=== PATIENT | female | born 1980 ===

== ENCOUNTER → 2017-11-20 | Outpatient (CLI) | payer OTHER ==
[~2017-11-20] MED LIST: CYCL10 PO; HYDR1TAB94 PO; IBUP800 PO; KETO10 PO; Prednisone20 MG PO; Robaxin500 MG PO
[2017-11-20 12:49] LABS: Influenza A Negative (NEGATIVE); Influenza B Positive (NEGATIVE)
== END ==
LOC: LAB 11:40
PROVIDERS: Family Medicine
DX: J02.9 Acute pharyngitis, unspecified (principal)
CPT/HCPCS: 87804

== ENCOUNTER 2019-10-15 10:32 | Emergency (ER) | payer OTHER ==
[~2019-10-15] VITALS: Ht 167.6 cm; Wt 117.9 kg
[2019-10-15] MEDS ORDERED: ACYCLOVIR400 MG PO (13:55)
[2019-10-15] MEDS ORDERED: LATA.005SO (13:55)
[2019-10-15 15:01] LABS: Source, Urine Catheter
[2019-10-15 15:16] LABS: Bilirubin, Urine Neg (Neg); Blood, Urine Neg (Neg); Glucose Qualitative, Urine Neg (Neg); Ketones, Urine Neg (Neg); Leukocyte Esterase, Urine Neg (Neg); Nitrite, Urine Neg (Neg); Protein, Urine Neg (Neg); Urobilinogen, Urine NORM (Normal)
[2019-10-15 15:27] LABS: Appearance, Urine Clear (Clear); Color, Urine Yellow (P-Yellow)
[2019-10-15] MEDS ORDERED: Prednisone20 MG PO (15:27)
[2019-10-15] MEDS ORDERED: Ultram50 MG PO (15:27)
[2019-10-15] MEDS ORDERED: Voltaren100 GM TOP (15:27)
== END 2019-10-15 15:42 | disposition home or self-care (01) ==
LOC: ER 10:32
PROVIDERS: Physician Assistant
DX: M51.37 Other intervertebral disc degeneration, lumbosacral region (principal); Z79.899 Other long term (current) drug therapy; E78.00 Pure hypercholesterolemia, unspecified
CPT/HCPCS: 72100; 81003; 81025; 96374; 99283-25; J1100; J1885

== ENCOUNTER 2020-03-03 12:04 | Day surgery (SDC) | payer OTHER ==
[~2020-03-03] VITALS: Ht 167.6 cm; Wt 121.9 kg
[~2020-03-03 12:04] MED LIST changes: +ACYCLOVIR400 MG PO; +Flovent 110 MCG12 GM; +LATA.005SO; +Ultram50 MG PO; +Voltaren100 GM TOP
[2020-03-03] MEDS ORDERED: Vitamin D2000 UNIT (12:35)
[2020-03-03] MEDS ORDERED: OMEP20ER (12:35)
== END 2020-03-03 13:30 | disposition home or self-care (01) ==
LOC: ORSCSDS 12:04
PROVIDERS: Student in an Organized Health Care Education/Training Program
PROC: 0DB58ZX Excision of Esophagus, Via Natural or Artificial Opening Endoscopic, Diagnostic (ICD-10-PCS; principal; 2020-03-03 13:30)
PROC: 0DB68ZX Excision of Stomach, Via Natural or Artificial Opening Endoscopic, Diagnostic (ICD-10-PCS; principal; 2020-03-03 13:30)
DX: K21.9 Gastro-esophageal reflux disease without esophagitis (principal); K20.9 Esophagitis, unspecified; J45.909 Unspecified asthma, uncomplicated; F41.9 Anxiety disorder, unspecified; E66.01 Morbid (severe) obesity due to excess calories; Z68.41 Body mass index [BMI] 40.0-44.9, adult; Z79.899 Other long term (current) drug therapy
CPT/HCPCS: 88305; 88342; J2250; J2704; J7120

== ENCOUNTER → 2022-01-05 | Outpatient (CLI) | payer OTHER ==
[~2022-01-05] MED LIST changes: +OMEP20ER; +Vitamin D2000 UNIT
== END ==
LOC: LAB 14:07 → LAB SHORT 14:07
DX: D48.5 Neoplasm of uncertain behavior of skin (principal)
CPT/HCPCS: 88342

== ENCOUNTER 2024-12-09 17:51 | Emergency (ER) | payer OTHER ==
[~2024-12-09] VITALS: Ht 167.6 cm; Wt 117.9 kg
[2024-12-09 18:55] LABS: BASOPHILS ABSOLUTE AUTO 0.08 K/mm3 (0.00-0.23); BASOPHILS PERCENT AUTO 1 % (0-2); EOSINOPHILS ABSOLUTE AUTO 0.13 K/mm3 (0.00-0.68); EOSINOPHILS PERCENT AUTO 1 % (0-6); Hematocrit 31.3 % (33.0-51.0); Hemoglobin 10.5 g/dL (11.5-16.0); IMMATURE GRAN ABSOLUTE AUTO 0.07 K/mm3 (0.00-0.10); IMMATURE GRAN PERCENT AUTO 1 % (0-1); LYMPHOCYTES PERCENT AUTO 21 % (21-46); MONOCYTES ABSOLUTE AUTO 0.85 K/mm3 (0.16-1.47); MONOCYTES PERCENT AUTO 8 % (4-13); Mean Corpuscular HGB 31.6 pg (26.0-34.0); Mean Corpuscular HGB Conc 33.5 g/dL (31.5-36.5); Mean Corpuscular Volume 94 fL (80-100); Mean Platelet Volume 11.4 fL (9.1-12.4); NEUTROPHILS ABSOLUTE AUTO 7.48 K/mm3 (1.96-9.15); NEUTROPHILS PERCENT AUTO 69 % (41-73); Platelet Count 214 K/mm3 (150-400); RDW Coefficient Variation 13.6 % (11.7-14.2); RDW Standard Deviation 46.7 fL (35.1-46.3); Red Blood Cell Count 3.32 M/mm3 (3.80-5.20); White Blood Cell Count 10.91 K/mm3 (4.00-11.30)
[2024-12-09 19:18] LABS: Albumin, Blood 3.4 g/dL (3.4-5.0); Bilirubin, Total 0.2 mg/dL (0.1-1.0); Bun/Creatinine Ratio 20.2 (12.0-20.0); Calcium, Blood 8.8 mg/dL (8.5-10.1); Creatinine, Blood 0.64 mg/dL (0.40-1.00); Globulin, Blood 3.3 g/dL (2.2-4.0); Potassium, Blood 3.6 mmol/L (3.5-5.5); Total Protein, Blood 6.7 g/dL (6.4-8.2)
[2024-12-09 22:28] LABS: Source, Urine Clean Catch
[2024-12-09 22:33] LABS: Appearance, Urine Clear (Clear); Bilirubin, Urine Neg (Neg); Blood, Urine 5+ (Neg); Color, Urine Yellow (P-Yellow); Glucose Qualitative, Urine Neg (Neg); Ketones, Urine Neg (Neg); Leukocyte Esterase, Urine Neg (Neg); Nitrite, Urine Neg (Neg); Protein, Urine 2+ (Neg); Specific Gravity, Urine 1.025 (1.003-1.022); Urobilinogen, Urine NORM (Normal)
[2024-12-09 22:40] LABS: Bacteria Rare /hpf; Red Blood Cells, Urine TNTC /hpf (0-2); Squamous Epithelial Cells Rare /hpf (Few); White Blood Cells, Urine Not Seen /hpf (0-5)
[2024-12-10 00:59] LABS: Hematocrit 28.6 % (33.0-51.0); Hemoglobin 9.8 g/dL (11.5-16.0)
[2024-12-10] MEDS ORDERED: MedroxyPROGESTERone Acetate 10 MG Tab PO ONE (01:40)
[2024-12-10] MEDS ORDERED: MEDR10 PO (01:42)
[2024-12-10 02:00] VITALS: BP 133/68
[2024-12-11 09:10] LABS: IRON BIND.CAP.(TIBC) 231 ug/dL (250-450); IRON SATURATION 26 % (15-55); IRON, SERUM 61 ug/dL (27-159); UIBC 170 ug/dL (131-425)
== END 2024-12-10 02:25 | disposition home or self-care (01) ==
LOC: ER 17:51
PROVIDERS: Student in an Organized Health Care Education/Training Program
DX: D25.2 Subserosal leiomyoma of uterus (principal); Z79.899 Other long term (current) drug therapy
CPT/HCPCS: 76830; 76856; 80053; 81001; 81025; 83540; 83550; 85014; 85018; 85025; 86850; 86900; 86901; 93005; 93010; 99284-25; A9270

== ENCOUNTER 2024-12-17 16:05 | Emergency (ER) | payer OTHER ==
[~2024-12-17] VITALS: Ht 167.6 cm; Wt 115.7 kg
[~2024-12-17 16:05] MED LIST changes: +MEDR10 PO; -OMEP20ER; +OMEPRAZOLE MAGN20 M1 PO; +Vitamin D1000 UNI1 PO; -Vitamin D2000 UNIT
[2024-12-17 17:13] LABS: International Normalized Ratio 0.96; Prothrombin Time Results 10.3 Sec (9.7-11.5)
[2024-12-17 17:20] LABS: Albumin, Blood 3.2 g/dL (3.4-5.0); Bilirubin, Total 0.2 mg/dL (0.1-1.0); Bun/Creatinine Ratio 16.9 (12.0-20.0); Calcium, Blood 8.4 mg/dL (8.5-10.1); Creatinine, Blood 0.71 mg/dL (0.40-1.00); Globulin, Blood 3.3 g/dL (2.2-4.0); Potassium, Blood 3.5 mmol/L (3.5-5.5); Total Protein, Blood 6.5 g/dL (6.4-8.2)
[2024-12-17] MEDS ORDERED: NS 1,000 ML IV ONE (19:57)
[2024-12-17] MEDS ORDERED: NS 1,000 ML IV SCH (20:25)
[2024-12-17 22:00] VITALS: BP 133/76
[2024-12-17] MEDS ORDERED: Ibuprofen 600 MG Tab PO ONE (22:35)
== END 2024-12-17 23:04 | disposition home or self-care (01) ==
LOC: ER 16:05
PROVIDERS: Student in an Organized Health Care Education/Training Program
DX: D64.9 Anemia, unspecified (principal); N93.9 Abnormal uterine and vaginal bleeding, unspecified; R51.9 Headache, unspecified; R55 Syncope and collapse; E78.00 Pure hypercholesterolemia, unspecified; H40.059 Ocular hypertension, unspecified eye; Z79.899 Other long term (current) drug therapy
CPT/HCPCS: 36430; 80053; 85610; 85730; 86850; 86900; 86901; 86923; 93005; 93010; 99284-25; A9270; J7030; P9016

== ENCOUNTER 2024-12-18 21:39 | Observation (INO) | payer OTHER ==
[~2024-12-18] VITALS: Ht 167.6 cm; Wt 117.0 kg
[2024-12-18 22:13] LABS: BASOPHILS ABSOLUTE AUTO 0.07 K/mm3 (0.00-0.23); BASOPHILS PERCENT AUTO 1 % (0-2); EOSINOPHILS ABSOLUTE AUTO 0.15 K/mm3 (0.00-0.68); EOSINOPHILS PERCENT AUTO 1 % (0-6); Hematocrit 25.5 % (33.0-51.0); Hemoglobin 8.5 g/dL (11.5-16.0); IMMATURE GRAN ABSOLUTE AUTO 0.08 K/mm3 (0.00-0.10); IMMATURE GRAN PERCENT AUTO 1 % (0-1); LYMPHOCYTES ABSOLUTE AUTO 2.29 K/mm3 (0.84-5.20); LYMPHOCYTES PERCENT AUTO 18 % (21-46); MONOCYTES ABSOLUTE AUTO 1.01 K/mm3 (0.16-1.47); MONOCYTES PERCENT AUTO 8 % (4-13); Mean Corpuscular HGB 32.1 pg (26.0-34.0); Mean Corpuscular HGB Conc 33.3 g/dL (31.5-36.5); Mean Corpuscular Volume 96 fL (80-100); Mean Platelet Volume 10.7 fL (9.1-12.4); NEUTROPHILS ABSOLUTE AUTO 8.87 K/mm3 (1.96-9.15); NEUTROPHILS PERCENT AUTO 71 % (41-73); Platelet Count 270 K/mm3 (150-400); RDW Coefficient Variation 17.4 % (11.7-14.2); RDW Standard Deviation 59.3 fL (35.1-46.3); Red Blood Cell Count 2.65 M/mm3 (3.80-5.20); White Blood Cell Count 12.47 K/mm3 (4.00-11.30)
[2024-12-18 22:28] LABS: International Normalized Ratio 0.96; Prothrombin Time Results 10.3 Sec (9.7-11.5)
[2024-12-18 22:44] LABS: Albumin, Blood 3.2 g/dL (3.4-5.0); Bilirubin, Total 0.2 mg/dL (0.1-1.0); Bun/Creatinine Ratio 16.6 (12.0-20.0); Calcium, Blood 8.5 mg/dL (8.5-10.1); Creatinine, Blood 0.66 mg/dL (0.40-1.00); Globulin, Blood 3.2 g/dL (2.2-4.0); Potassium, Blood 3.5 mmol/L (3.5-5.5); Total Protein, Blood 6.4 g/dL (6.4-8.2)
[2024-12-19] VITALS (18 sets, daily range): BP systolic 108–155; BP diastolic 51–90
[2024-12-19] MEDS ORDERED: NS 1,000 ML IV SCH (02:40)
[2024-12-19] MEDS ORDERED: HYDROmorphone HCl/Pf 1MG SYR IV PRN (02:40)
[2024-12-19] MEDS ORDERED: Ondansetron HCl 2 MG / ML 2ML Vial IV PRN ×2 (02:40→16:35)
[2024-12-19 04:24] LABS: Hematocrit 25.1 % (33.0-51.0)
--- NOTE | 2024-12-19 04:26 | NUR ---
SHIFT SUMMARY NO ACUTE CHANGES SINCE ARRIVING TO UNIT. PT A/OX4 WITH VSS. DENIES DIZZINESS OR N/V. REPORTS CHANGING OLIVER PAD Q3HRS, STATES DECREASE FROM 24HRS PRIOR. IS VOIDING. ONE 3CM BLOOD CLOT NOTED IN URINE. IVF INFUSING PER ORDERS. REPORTS PAIN AT TOLERABLE LEVEL, DENIES NEED FOR MEDICATION. NPO EXCEPT WATER SINCE MIDNIGHT. CHG SURGICAL SCRUB COMPLETE. PLAN TO REPEAT H/H PER ORDERS AND FOR POSSIBLE SURGERY TODAY. WILL GIVE REPORT TO ONCOMING RN.
--- NOTE | 2024-12-19 04:31 | NUR ---
ADMIT TO SURGICAL UNIT PT ARRIVED FROM ED AT APPROX 0130 TODAY VIA WC. IS A/OX4 WITH VSS. DENIES PAIN. IS NPO. IV TO LEFT AC PATENT/SL. PT DENIES DIZZINESS, REPORTS FEELING STABLE WHEN AMBULATING. DENIES N/V, SOB, SP, OR N/T. REPORTS VAGINAL BLEEDING HAS DECREASED IN THE LAST 24HRS, CHANGING OLIVER PAD Q3 HOURS. IS VOIDING. EDUCATED ON STRICT I/O PER ORDERS. ORIENTATION TO ROOM PROVIDED, PT VERBALIZED UNDERSTANDING. FRESH ICE WATER PROVIDED. DENIES NEEDS AT THIS TIME.
[2024-12-19] MEDS ORDERED: Acetaminophen 325 MG TABLET PO PRN (07:00)
[2024-12-19] MEDS ORDERED: FLUTICASONE-SA1 EA12 INH (10:36)
[2024-12-19 10:37] LABS: Hemoglobin 8.3 g/dL (11.5-16.0)
[2024-12-19] MEDS ORDERED: ALBU90OI INH (10:37)
[2024-12-19] MEDS ORDERED: Norethindrone Ac5 MG PO (10:37)
[2024-12-19] MEDS ORDERED: CeFAZolin Sodium 2,000 MG in NS 100 ML IV SCH ×3 (12:00→20:00)
[2024-12-19] MEDS ORDERED: NS 250 ML IV PRN (12:05)
[2024-12-19] MEDS ORDERED: Lactated Ringer's 1,000 ML IV SCH ×2 (12:05→16:40)
--- NOTE | 2024-12-19 12:49 | NUR ---
1 UNIT PR[facility] STARTED AT 1238. PT ALERT/ORIENTED. VSS. PT REPORTED UNDERSTANDING REASON FOR BLOOD ADMINISTRATION, BLOOD CONSENT SIGNED BY PT AND DR. LAYNE, PLACED ON CHART.
[2024-12-19] MEDS ORDERED: Bupivacaine 0.25% Epi 1:200000 30 ML Vial ONE (13:10)
[2024-12-19] MEDS ORDERED: CeFAZolin Sodium 2,000 MG VIAL ONE (13:10)
[2024-12-19] MEDS ORDERED: Acetaminophen 500 MG Tab PO ONE (13:10)
[2024-12-19] MEDS ORDERED: propofoL 200 ML IV ONE (13:30)
[2024-12-19] MEDS ORDERED: Metoclopramide HCl 5MG / ML 2ML Vial ONE (13:33)
[2024-12-19] MEDS ORDERED: Ondansetron HCl 2 MG / ML 2ML Vial ONE ×2 (13:33→16:43)
[2024-12-19] MEDS ORDERED: Rocuronium Bromide 10 MG/ML 5ML Injection IV ONE ×2 (13:33→16:01)
[2024-12-19] MEDS ORDERED: Dexamethasone Sod Phos 10 MG/ML 1ML VIAL ONE (13:33)
[2024-12-19] MEDS ORDERED: HYDROmorphone HCl 0.5 MG/0.5 ML SYR ONE ×5 (13:33→16:55)
[2024-12-19] MEDS ORDERED: Sugammadex Sodium 200 MG/2ML SDV (100 MG/ML) ONE (13:34)
[2024-12-19] MEDS ORDERED: propofoL 40 ML IV ONE (13:34)
--- NOTE | 2024-12-19 13:45 | NUR ---
2 IV ATTEMPTS BY SU KAY, PT TEARY EYED 3RD ATTEMPT BY ATA SUNG RN. PT RECOVERED WELL. AMBULTED TO BR VOIDED RED URINE HCG DONE, NEG RESULTS
[2024-12-19] MEDS ORDERED: Mometasone/Formoterol MDI 200/5 mcg 13 GM INH SCH (14:00)
[2024-12-19] MEDS ORDERED: Albuterol HFA200 ACT/6.7 GM INH INH PRN (14:00)
--- NOTE | 2024-12-19 14:14 | NUR ---
PT TAKEN TO SAY SURGERY AT APPROXIMATELY 1250. RIGOBERTO VAZ NOTIFIED THAT PRBC HAVE BEEN STARTED AND FIRST 15 MINUTES OF ADMINISTRATION COMPLETED AND PT TOLERATED WELL.
[2024-12-19] MEDS ORDERED: FentaNYL Citrate 50 MCG/ML 2 ML Injection ONE ×2 (14:23→16:19)
[2024-12-19] MEDS ORDERED: Ketorolac Tromethamine 30mg Vial ONE (15:12)
[2024-12-19] MEDS ORDERED: propofoL 20 ML IV ONE (15:59)
[2024-12-19] MEDS ORDERED: Ondansetron 4 MG TAB PO PRN (16:35)
[2024-12-19] MEDS ORDERED: OxyCODONE 5 mg/Acetamin 325 mg TABLET PO PRN (16:35)
[2024-12-19] MEDS ORDERED: Simethicone 80 MG Chew PO PRN (16:35)
[2024-12-19] MEDS ORDERED: HYDROmorphone HCl 0.5 MG/0.5 ML SYR IV PRN (16:35)
[2024-12-19] MEDS ORDERED: Promethazine HCl 25 MG Tab PO PRN (16:40)
[2024-12-19] MEDS ORDERED: Ketorolac Tromethamine 30mg Vial IV PRN (16:40)
[2024-12-19] MEDS ORDERED: Naloxone HCl 0.4MG / ML 1ML Vial IV PRN (16:40)
[2024-12-19] MEDS ORDERED: Promethazine HCl 12.5 MG Supp PR PRN (16:40)
--- NOTE | 2024-12-19 20:07 | NUR ---
SHIFT SUMMARY PT IS POD#0 FROM [facility] LEON. PT ARRIVED BACK TO HER RM FROM PACU AT APPROXIMATELY 1700. UPON ARRIVAL TO THE ROOM PT WAS DROWSY BUT AROUSABLE AND ORIENTED. PT REPORTED 10/10 PAIN, WHEN ALLOWED TO REST PT BEGAN TO SNORE QUIETLY AND RESTED WITHOUT ANY GRIMACING AND COMPLAINTS OF PAIN. LAP SITES X5 COVERED WITH BANDAIDS. LIGHT VAGINAL BLEEDING. BEDSIDE REPORT GIVEN TO MOOKIE RN. DURING BEDSIDE REPORT PT RATES HER PAIN AT 10/10, SHE WAS GIVEN PO PAIN MEDICATION. PT CONTINUES TO BE DROWSY BUT WAKE AND RESPOND APPROPRIATELY WHEN SPOKEN TO. CALL LIGHT WITHIN REACH. CONTINUOUS PULSE OX IN PLACE FOR HIGH RISK PAIN MANAGEMENT.
[2024-12-19] MEDS ORDERED: ZEPBOUND7.5 MG/0.5 SC (20:13)
[2024-12-20 02:59] VITALS: BP 139/71
[2024-12-20 04:08] LABS: BASOPHILS ABSOLUTE AUTO 0.02 K/mm3 (0.00-0.23); BASOPHILS PERCENT AUTO 0 % (0-2); EOSINOPHILS PERCENT AUTO 0 % (0-6); Hematocrit 28.4 % (33.0-51.0); Hemoglobin 9.6 g/dL (11.5-16.0); IMMATURE GRAN ABSOLUTE AUTO 0.09 K/mm3 (0.00-0.10); IMMATURE GRAN PERCENT AUTO 1 % (0-1); LYMPHOCYTES ABSOLUTE AUTO 1.09 K/mm3 (0.84-5.20); LYMPHOCYTES PERCENT AUTO 7 % (21-46); MONOCYTES ABSOLUTE AUTO 0.73 K/mm3 (0.16-1.47); MONOCYTES PERCENT AUTO 5 % (4-13); Mean Corpuscular HGB Conc 33.8 g/dL (31.5-36.5); Mean Corpuscular Volume 95 fL (80-100); Mean Platelet Volume 10.6 fL (9.1-12.4); NEUTROPHILS ABSOLUTE AUTO 12.72 K/mm3 (1.96-9.15); NEUTROPHILS PERCENT AUTO 87 % (41-73); Platelet Count 267 K/mm3 (150-400); RDW Coefficient Variation 16.2 % (11.7-14.2); White Blood Cell Count 14.65 K/mm3 (4.00-11.30)
[2024-12-20 04:34] LABS: Percent Saturation 26.6 % (15.0-50.0)
[2024-12-20] MEDS ORDERED: Omeprazole 20 MG CapCR PO SCH (06:00)
--- NOTE | 2024-12-20 07:04 | NUR ---
SHIFT SUMMARY NOC. PT POD 1 FOR TOTAL ROBOTIC LAP HYSTERECTOMY. LAP SITES X5 ARE C/D/I WITH WOUND GLUE AND COVERED WITH BANDAIDS. PT VOIDING URINE AND TOLERATING MINIMAL PO INTAKE. PT'S PAIN IMPROVED T/O NIGHT, MEDICATED WITH ORAL PERCOCET, TORADOL, AND SIMETHICONE. DENIES PASSING GAS. AMBULATES WELL. SCANT PINK BLOOD ON PERIPAD. CALL LIGHT IN REACH, REPORT GIVEN TO ONCOMING DAY SHIFT RN.
--- NOTE | 2024-12-20 07:30 | NUR ---
RADIOLOGY COMPLETED LAST NIGHT WITH RETURN OF YOUSIF ELENA TO UNIT WHO VERB RADIOLOGIST REPORTED FILMS APPEARING NEGATIVE FOR ANY CONCERNS REGARDING SURG POSTOP COUNT NOT COMPLETED IN OR.
[2024-12-20 07:35] VITALS: BP 120/68
[2024-12-20] MEDS ORDERED: Cholecalciferol 1000 Unit Tablet (=25MCG) PO SCH (09:00)
[2024-12-20] MEDS ORDERED: Percocet 5-3251 EACH PO (11:36)
[2024-12-20] MEDS ORDERED: SIME80CH PO (11:37)
[2024-12-20] MEDS ORDERED: PROM25 PO (11:37)
[2024-12-20 12:10] VITALS: BP 127/84
--- NOTE | 2024-12-20 12:55 | NUR ---
DISCHARGE PT PROVIDED WITH WRITTEN AND VERBAL DISCHARGE INSTRUCTIONS, SHE REPORTED UNDERSTANDING. PAIN MANAGED AT TIME OF DISCHARGE. PRIOR TO DISCHARGE PT MET ALL GOALS, SHE HAS BEEN ABLE TO AMBULATE, TOLERATE PO AND PAIN MANAGED. PT PROVIDED WITH AN INCENTIVE SPIRMOTER. SHE WAS SENT HOME WITH AND ABD BINDER. INCISION SITES WNL. PT ASSISTED OUT IN A WHEELCHAIR AT 1235.
== END 2024-12-20 12:35 | disposition home or self-care (01) ==
LOC: ER 21:39 → SURS 21:40 → ERHOLD 21:40 → SURS 12-19 01:25
PROVIDERS: Student in an Organized Health Care Education/Training Program; ADMIT Obstetrics & Gynecology
PROC: 0UT94ZZ Resection of Uterus, Percutaneous Endoscopic Approach (ICD-10-PCS; principal; 2024-12-19 13:30)
PROC: 0UB24ZZ Excision of Bilateral Ovaries, Percutaneous Endoscopic Approach (ICD-10-PCS; principal; 2024-12-19 13:30)
PROC: 0UB74ZZ Excision of Bilateral Fallopian Tubes, Percutaneous Endoscopic Approach (ICD-10-PCS; principal; 2024-12-19 13:30)
DX: D25.9 Leiomyoma of uterus, unspecified (principal); N92.0 Excessive and frequent menstruation with regular cycle; N83.291 Other ovarian cyst, right side; D50.0 Iron deficiency anemia secondary to blood loss (chronic); Z68.41 Body mass index [BMI] 40.0-44.9, adult; Z79.899 Other long term (current) drug therapy
CPT/HCPCS: 36415; 36430; 51701; 74018; 80053; 82728; 83540; 83550; 85014; 85018; 85025; 85610; 85730; 86850; 86900; 86901; 86923; 88307; 94640; 94664; 94762; 99284; A9270; G0378; J0690; J1100; J1171; J1885; J2405; J2704; J2765; J3010; J7030; J7120; P9016

== ENCOUNTER 2025-07-02 07:06 | Day surgery (SDC) | payer OTHER ==
[~2025-07-02] VITALS: Ht 167.6 cm; Wt 122.6 kg
[~2025-07-02 07:06] MED LIST changes: +ALBU90OI INH; +FLUTICASONE-SA1 EA12 INH; +Norethindrone Ac5 MG PO; +PROM25 PO; +Percocet 5-3251 EACH PO; +SIME80CH PO; +ZEPBOUND7.5 MG/0.5 SC
[2025-07-02] MEDS ORDERED: ACET500 (07:30)
[2025-07-02] MEDS ORDERED: IBUP200 (07:30)
[2025-07-02] MEDS ORDERED: OMEP20ER (07:31)
[2025-07-02] MEDS ORDERED: AMOX250 (07:37)
[2025-07-02 09:26] VITALS: BP 132/68
== END 2025-07-02 09:30 | disposition home or self-care (01) ==
LOC: ORSCSDS 07:06
PROVIDERS: Specialist
PROC: 0DBM8ZX Excision of Descending Colon, Via Natural or Artificial Opening Endoscopic, Diagnostic (ICD-10-PCS; principal; 2025-07-02 08:30)
PROC: 0DBL8ZX Excision of Transverse Colon, Via Natural or Artificial Opening Endoscopic, Diagnostic (ICD-10-PCS; principal; 2025-07-02 08:30)
PROC: 0DB98ZX Excision of Duodenum, Via Natural or Artificial Opening Endoscopic, Diagnostic (ICD-10-PCS; 2025-07-02 08:30)
PROC: 0DB58ZX Excision of Esophagus, Via Natural or Artificial Opening Endoscopic, Diagnostic (ICD-10-PCS; 2025-07-02 08:30)
PROC: 0DB68ZX Excision of Stomach, Via Natural or Artificial Opening Endoscopic, Diagnostic (ICD-10-PCS; 2025-07-02 08:30)
DX: R19.4 Change in bowel habit (principal); R13.10 Dysphagia, unspecified; D12.4 Benign neoplasm of descending colon; K63.5 Polyp of colon; K64.8 Other hemorrhoids; K22.10 Ulcer of esophagus without bleeding; K29.50 Unspecified chronic gastritis without bleeding; I10 Essential (primary) hypertension; J45.909 Unspecified asthma, uncomplicated; Z79.899 Other long term (current) drug therapy
CPT/HCPCS: 88305; 88342; J2704; J7120